=== PATIENT | female | born 1975 | race Caucasian/White ===

== ENCOUNTER 2017-01-24 17:06 | Outpatient (CLI) | payer OTHER ==
--- NOTE | 2017-01-24 17:33 | DIAGNOSTIC IMAGING REPORT ---
PROCEDURE: XR CHEST 2 VIEW INDICATION: RP PNEUMONIA TECHNIQUE: PA and lateral views. COMPARISON: Chest 11/20/2014 FINDINGS: Lungs are clear. Heart and mediastinum are normal. Thorax is normal. IMPRESSION: 1. Negative chest.
== END 2017-01-24 23:00 ==
LOC: XR SRH 17:06
DX: J40 Bronchitis, not specified as acute or chronic (principal)